=== PATIENT | male | born 1950 | race Caucasian/White ===

== ENCOUNTER → 2016-12-24 | Outpatient (CLI) | payer OTHER | END | disposition home or self-care (01) | LOC: GMAJ 10:57 | PROVIDERS: ATTEND Family Medicine | DX: Z12.5 Encounter for screening for malignant neoplasm of prostate (principal); I10 Essential (primary) hypertension | CPT/HCPCS: 84443; G0103 ==

== ENCOUNTER 2017-12-07 12:26 | Emergency (ER) | payer OTHER ==
[2017-12-07 12:48] VITALS: TEMP 96.1
[2017-12-07] MEDS ORDERED: ASPIRIN (CHEWABLE) 81 MG TAB PO ONE (13:39)
[2017-12-07] MEDS ORDERED: FUROSEMIDE INJ 40 MG/4 ML VIAL IV ONE (13:52)
--- NOTE | 2017-12-07 14:07 | ED.PDOC ---
History of Present Illness - General Chief Complaint: Chest Pain/UT Stated Complaint: chest tightness with exertion,shortness of breath Time Seen by Provider: 12/07/17 12:57 Source: patient, RN notes reviewed, Vital Signs reviewed, EMS notes reviewed Exam Limitations: no limitations - History of Present Illness Timing/Duration: intermittent, other - 2 weeks Severity/Quality: moderate, dull, tightness Location: shoulder Chest Pain Radiation: neck Activities at Onset: activity Prior Chest Pain/Cardiac Workup: non-cardiac Improving Factors: rest Worsening Factors: movement Aspirin Treatment Today: no aspirin today Associated Symptoms: edema, fatigue, shortness of breath Allergies/Adverse Reactions: Allergies Morphine Allergy (Verified 12/07/17 14:08) Home Medications: Ambulatory Orders Apixaban [Eliquis] 5 mg PO BID 12/07/17 Ascorbic Acid [Vitamin C] 1,000 mg PO DAILY 12/07/17 Atenolol [Tenormin] 37.5 mg PO DAILY 12/07/17 Diltiazem HCl Coated Beads [Diltiazem HCl ER] 240 mg PO DAILY 12/07/17 Diphenhydramine HCl (Sleep) [Zzzquil] 100 mg PO BEDTIME 12/07/17 Doxazosin Mesylate [Doxazosin] 4 mg PO DAILY 12/07/17 [place]-3 Fatty Acids [Fish Oil 1200 mg] 1 cap PO DAILY 12/07/17 Pediatric Multiple Vitamin W/ [Complete Multi-Vitamin Gu] 1 chw PO DAILY Pravastatin Sodium 40 mg PO BEDTIME 12/07/17 Probiotic Product [Fortify Daily Probiotic] 1 cap PO DAILY 12/07/17 Somnapure 2 each PO DAILY 12/07/17 Valsartan-Hydrochlorothiazide [Valsartan/Hydrochlorothia 160-12.5 mg] 1 tab PO DAILY 12/07/17 diphenhydrAMINE HCL [Benadryl] 25 mg PO PRN 12/07/17 Review of Systems - Review of Systems Constitutional: States: no symptoms reported EENTM: States: no symptoms reported Respiratory: States: orthopnea, short of breath Cardiology: States: chest pain, edema, palpitations Gastrointestinal/Abdominal: States: no symptoms reported Genitourinary: States: no symptoms reported Musculoskeletal: States: no symptoms reported Skin: States: no symptoms reported Neurological: States: no symptoms reported Endocrine: States: no symptoms reported Past Medical History (General) - Patient Medical History Hx Stroke: No Hx Cardiac Disorders: Yes - Atrial fib Hx Pacemaker: No Hx Hypertension: Yes Hx Diabetes: No Surgical History: appendectomy, cholecystectomy - Vaccination History Hx Influenza Vaccination: No Hx Pneumococcal Vaccination: No - Social History Hx Tobacco Use: Yes Family Medical History - Family History Father Family History: Unknown Living Status: Unknown Physical Exam - Physical Exam General Appearance: Alert, Well Developed, Well Groomed, Well Hydrated, Well Nourished Eyes, Ears, Nose, Throat Exam: normal ENT inspection, pharynx normal Neck: non-tender, full range of motion, supple Respiratory: chest non-tender, no respiratory distress, no accessory muscle use , crackles Cardiovascular/Chest: tachycardia, irregularly irregular Gastrointestinal/Abdominal: normal bowel sounds, non tender, soft, no organomegaly, no pulsatile mass Extremity: normal range of motion, non-tender, normal inspection, pedal edema, swelling 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 Wade's office [place] , [place] to reach him concerning his patient; returned call and will call Dr. Lou 12/07/17 14:14 updated family 12/07/17 14:14 ekg rate 122 pr * qrs 78, qtc 510 afib rvr no angina 12/07/17 13:00 EKG STAT Laboratory Results WBC 5.2 K/mm3 (4.8-10.8) 12/07/17 12:50 RBC 4.28 M/mm3 (4.70-6.10) L 12/07/17 12:50 Hgb 13.0 gm/dL (14.0-18.0) L 12/07/17 12:50 Hct 37.7 % (42.0-52.0) L 12/07/17 12:50 MCV 88.2 fl (80.0-94.0) 12/07/17 12:50 MCH 30.3 pg (27.0-31.0) 12/07/17 12:50 MCHC 34.5 g/dL (33.0-37.0) 12/07/17 12:50 RDW 14.6 % (11.5-14.5) H 12/07/17 12:50 Plt Count 166 K/mm3 (130-400) 12/07/17 12:50 MPV 9.1 fl (7.40-10.4) 12/07/17 12:50 Absolute Neuts (auto) 4.00 K/uL (1.8-6.8) 12/07/17 12:50 Absolute Lymphs (auto) 0.70 K/uL (1.0-3.4) L 12/07/17 12:50 Absolute Monos (auto) 0.40 K/uL (0.2-0.8) 12/07/17 12:50 Absolute Eos (auto) 0.10 K/uL (0.0-0.4) 12/07/17 12:50 Absolute Basos (auto) 0.00 K/uL (0.0-0.1) 12/07/17 12:50 Neutrophils % 77.2 % (42.0-78.0) 12/07/17 12:50 Lymphocytes % 13.1 % (20.0-50.0) L 12/07/17 12:50 Monocytes % 6.9 % (2.0-9.0) 12/07/17 12:50 Eosinophils % 2.0 % (1.0-5.0) 12/07/17 12:50 Basophils % 0.8 % (0.0-2.0) 12/07/17 12:50 Sodium 143 mmol/L (135-145) 12/07/17 12:50 Potassium 3.7 mmol/L (3.6-5.0) 12/07/17 12:50 Chloride 106 mmol/L (101-111) 12/07/17 12:50 Carbon Dioxide 31 mmol/L (21-31) 12/07/17 12:50 Anion Gap 9.7 (12-18) L 12/07/17 12:50 BUN 19 mg/dL (7-18) H 12/07/17 12:50 Creatinine 1.22 mg/dL (0.6-1.3) 12/07/17 12:50 BUN/Creatinine Ratio 15.6 (10-20) 12/07/17 12:50 Random Glucose 84 mg/dL (70-105) 12/07/17 12:50 Serum Osmolality 286.4 mOsm/L (275-295) 12/07/17 12:50 Calcium 8.8 mg/dL (8.4-10.2) 12/07/17 12:50 Total Bilirubin 0.9 mg/dL (0.2-1.0) 12/07/17 12:50 AST 28 IU/L (10-42) 12/07/17 12:50 ALT 32 IU/L (10-60) 12/07/17 12:50 Alkaline Phosphatase 65 IU/L (42-121) 12/07/17 12:50 Troponin I 0.07 ng/mL (0.01-0.05) H* 12/07/17 12:50 B-Natriuretic Peptide 283.0 pg/ml (0-100) H* 12/07/17 12:50 Serum Total Protein 6.5 gm/dL (6.4-8.2) 12/07/17 12:50 Albumin 4.0 g/dl (3.2-5.5) 12/07/17 12:50 Globulin 2.5 gm/dL (2.3-3.5) 12/07/17 12:50 Albumin/Globulin Ratio 1.6 (1.1-1.9) 12/07/17 12:50 Departure - Departure Clinical Impression: Atrial fibrillation with RVR Congestive heart failure Qualifiers: Congestive heart failure type: combined Congestive heart failure chronicity: acute Qualified Code(s): I50.41 - Acute combined systolic (congestive) and diastolic (congestive) heart failure Disposition: Transfer to Hospital Condition: Good Departure Forms: ED Discharge - Pt. Copy, Patient Portal Self Enrollment Instructions: DI for Chest Pain Diet: resume usual diet Activity: no exercise Referrals: Lavelle Luke MD [Primary Care Provider] - 1-2 Weeks Home Medications: Ambulatory Orders Apixaban [Eliquis] 5 mg PO BID 12/07/17 Ascorbic Acid [Vitamin C] 1,000 mg PO DAILY 12/07/17 Atenolol [Tenormin] 37.5 mg PO DAILY 12/07/17 Diltiazem HCl Coated Beads [Diltiazem HCl ER] 240 mg PO DAILY 12/07/17 Diphenhydramine HCl (Sleep) [Zzzquil] 100 mg PO BEDTIME 12/07/17 Doxazosin Mesylate [Doxazosin] 4 mg PO DAILY 12/07/17 [place]-3 Fatty Acids [Fish Oil 1200 mg] 1 cap PO DAILY 12/07/17 Pediatric Multiple Vitamin W/ [Complete Multi-Vitamin Gu] 1 chw PO DAILY Pravastatin Sodium 40 mg PO BEDTIME 12/07/17 Probiotic Product [Fortify Daily Probiotic] 1 cap PO DAILY 12/07/17 Somnapure 2 each PO DAILY 12/07/17 Valsartan-Hydrochlorothiazide [Valsartan/Hydrochlorothia 160-12.5 mg] 1 tab PO DAILY 12/07/17 diphenhydrAMINE HCL [Benadryl] 25 mg PO PRN 12/07/17 Transfer to Outside Facility - Transfer Information Accepting Facility: [facility] Reason for Transfer: specialized care not available
--- NOTE | 2017-12-07 14:10 | RAD ---
EXAM DESCRIPTION: Chest,2 Views CLINICAL HISTORY: shortness of breath COMPARISON: None TECHNIQUE: PA/lateral FINDINGS: Heart is enlarged with mildly prominent central pulmonary vascularity but no sung congestive failure. Minimal discoid atelectasis in the lung bases. Other areas of the lungs appear clear. Slight blunting the costophrenic angle suggests trace pleural fluid. No pneumothorax or significant sized pleural effusion. Lateral view shows mild wedging in the mid T-spine. IMPRESSION: Large heart with mild central vascular congestion. Electronically signed by: Jose Francisco Young MD 12/07/2017 2:09 PM CDT
[2017-12-07 15:11] VITALS: BP 148/109
[2017-12-07 15:46] VITALS: O2SAT 94
== END 2017-12-07 15:46 | disposition short-term general hospital (02) ==
LOC: ER 12:26
DX: I48.91 Unspecified atrial fibrillation (principal); I11.0 Hypertensive heart disease with heart failure; I50.41 Acute combined systolic (congestive) and diastolic (congestive) heart failure

== ENCOUNTER → 2018-03-22 | Outpatient (CLI) | payer OTHER | LOC: GMAJ 10:40 | PROVIDERS: ATTEND Family Medicine | DX: Z12.5 Encounter for screening for malignant neoplasm of prostate (principal) ==

== ENCOUNTER 2019-01-23 16:59 | Emergency (ER) | payer OTHER ==
--- NOTE | 2019-01-23 17:28 | ED.PDOC ---
History of Present Illness - General Chief Complaint: Upper Extremity Injury Time Seen by Provider: 01/23/19 17:06 Source: patient Exam Limitations: no limitations - History of Present Illness Initial Comments: the patient is a 68-year-old male presenting to emergency room secondary to bruising to his right elbow. He bumped his elbow on something in the vehicle yesterday. Today he has bruising extending from around the elbow and some tenderness over his olecranon bursa. No increased heat and no evidence of any infection. He is neurovascularly intact and moves the arm well. Timing/Duration: 24 hours Severity: mild Improving Factors: nothing Worsening Factors: nothing Associated Symptoms: denies symptoms Allergies/Adverse Reactions: Allergies Morphine Allergy (Verified 12/07/17 14:08) Home Medications: Ambulatory Orders Apixaban [Eliquis] 5 mg PO BID 12/07/17 Ascorbic Acid [Vitamin C] 1,000 mg PO DAILY 12/07/17 Atenolol [Tenormin] 37.5 mg PO DAILY 12/07/17 Diltiazem HCl Coated Beads [Diltiazem HCl ER] 240 mg PO DAILY 12/07/17 Diphenhydramine HCl (Sleep) [Zzzquil] 100 mg PO BEDTIME 12/07/17 Doxazosin Mesylate [Doxazosin] 4 mg PO DAILY 12/07/17 [place]-3 Fatty Acids [Fish Oil 1200 mg] 1 cap PO DAILY 12/07/17 Pediatric Multiple Vitamin W/ [Complete Multi-Vitamin Gu] 1 chw PO DAILY 12/07/17 Pravastatin Sodium 40 mg PO BEDTIME 12/07/17 Probiotic Product [Fortify Daily Probiotic] 1 cap PO DAILY 12/07/17 Somnapure 2 each PO DAILY 12/07/17 Valsartan-Hydrochlorothiazide [Valsartan/Hydrochlorothia 160-12.5 mg] 1 tab PO DAILY 12/07/17 diphenhydrAMINE HCL [Benadryl] 25 mg PO PRN 12/07/17 Review of Systems - Review of Systems Constitutional: States: no symptoms reported EENTM: States: no symptoms reported Respiratory: States: no symptoms reported Cardiology: States: no symptoms reported Gastrointestinal/Abdominal: States: no symptoms reported Genitourinary: States: no symptoms reported Musculoskeletal: States: no symptoms reported Skin: States: see HPI Neurological: States: no symptoms reported Endocrine: States: no symptoms reported Hematologic/Lymphatic: States: no symptoms reported All other Systems: No Change from Baseline Past Medical History (General) - Patient Medical History Hx Stroke: No Hx Cardiac Disorders: Yes - Atrial fib Hx Congestive Heart Failure: No Hx Pacemaker: No Hx Hypertension: Yes Hx Diabetes: No - Vaccination History Hx Influenza Vaccination: No Hx Pneumococcal Vaccination: No - Social History Hx Tobacco Use: Yes Family Medical History - Family History Father Family History: Unknown Living Status: Unknown Physical Exam - Physical Exam General Appearance: Alert, Comfortable, No apparent distress Eye Exam: bilateral normal Ears, Nose, Throat: hearing grossly normal Neck: full range of motion, supple Respiratory: no respiratory distress, no accessory muscle use Cardiovascular/Chest: normal peripheral pulses, no edema Peripheral Pulses: radial,right: 2+, radial,left: 2+ Gastrointestinal/Abdominal: other - obese Rectal Exam: deferred Extremity: normal range of motion, no pedal edema, normal capillary refill 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 It appears to be controlled at this point. He is neurovascularly intact. No evidence of any significant bony damage. He should expect some soreness for the next couple of weeks. Encourage range of motion activities. ER warnings were given. Hold eliquis for 48-72 hours. 01/23/19 17:29 Departure - Departure Clinical Impression: Traumatic hematoma of right elbow Qualifiers: Encounter type: initial encounter Qualified Code(s): S50.01XA - Contusion of right elbow, initial encounter Disposition: Discharge to Home or Self Care Condition: Fair Departure Forms: ED Discharge - Pt. Copy, Patient Portal Self Enrollment Instructions: DI for Elbow Pain Diet: regular diet Activity: increase activity as tolerated Referrals: Lavelle Luke MD [Primary Care Provider] - 1-2 Weeks Home Medications: Ambulatory Orders Apixaban [Eliquis] 5 mg PO BID 12/07/17 Ascorbic Acid [Vitamin C] 1,000 mg PO DAILY 12/07/17 Atenolol [Tenormin] 37.5 mg PO DAILY 12/07/17 Diltiazem HCl Coated Beads [Diltiazem HCl ER] 240 mg PO DAILY 12/07/17 Diphenhydramine HCl (Sleep) [Zzzquil] 100 mg PO BEDTIME 12/07/17 Doxazosin Mesylate [Doxazosin] 4 mg PO DAILY 12/07/17 [place]-3 Fatty Acids [Fish Oil 1200 mg] 1 cap PO DAILY 12/07/17 Pediatric Multiple Vitamin W/ [Complete Multi-Vitamin Gu] 1 chw PO DAILY 12/07/17 Pravastatin Sodium 40 mg PO BEDTIME 12/07/17 Probiotic Product [Fortify Daily Probiotic] 1 cap PO DAILY 12/07/17 Somnapure 2 each PO DAILY 12/07/17 Valsartan-Hydrochlorothiazide [Valsartan/Hydrochlorothia 160-12.5 mg] 1 tab PO DAILY 12/07/17 diphenhydrAMINE HCL [Benadryl] 25 mg PO PRN 12/07/17 Additional Instructions: the patient's 68-year-old male presenting with bruising surrounding the right olecranon after very minor trauma yesterday. It appears to be controlled at this point. He is neurovascularly intact. No evidence of any significant bony damage. He should expect some soreness for the next couple of weeks. Encourage range of motion activities. ER warnings were given. Hold eliquis for 48-72 hours.
[2019-01-23 17:48] VITALS: BP 150/87; TEMP 98.1; O2SAT 97
== END 2019-01-23 17:42 | disposition home or self-care (01) ==
LOC: ER 16:59
DX: S50.01XA Contusion of right elbow, initial encounter (principal); I48.91 Unspecified atrial fibrillation; I10 Essential (primary) hypertension; Z79.01 Long term (current) use of anticoagulants; Z87.891 Personal history of nicotine dependence; Z79.899 Other long term (current) drug therapy; Z88.5 Allergy status to narcotic agent; W22.8XXA Striking against or struck by other objects, initial encounter; Y92.818 Other transport vehicle as the place of occurrence of the external cause

== ENCOUNTER → 2020-04-17 | Outpatient (CLI) | payer OTHER | LOC: GMAJ 10:23 | PROVIDERS: ATTEND Family Medicine | DX: Z12.5 Encounter for screening for malignant neoplasm of prostate (principal); E78.2 Mixed hyperlipidemia; I10 Essential (primary) hypertension ==